=== PATIENT | male | born 1990 | race Two or more races ===

== ENCOUNTER 2022-04-10 08:53 | Outpatient (CLI) | payer OTHER | END 2022-04-10 08:54 | disposition home or self-care (01) | LOC: LAB 08:53 | PROVIDERS: ATTEND Obstetrics & Gynecology | DX: Z20.818 Contact with and (suspected) exposure to other bacterial communicable diseases (principal); Z20.828 Contact with and (suspected) exposure to other viral communicable diseases ==

== ENCOUNTER → 2022-04-14 | Outpatient (CLI) | payer OTHER | END | disposition home or self-care (01) | LOC: LAB 11:15 | PROVIDERS: ATTEND Pediatrics Neonatal-Perinatal Medicine | DX: Z11.52 Encounter for screening for COVID-19 (principal) ==

== ENCOUNTER 2025-03-11 17:49 | Emergency (ER) | payer OTHER ==
[~2025-03-11] VITALS: Ht 175.3 cm; Wt 107.0 kg
[2025-03-11] MEDS ORDERED: METFORMIN HCL500 M3 PO (17:57)
[2025-03-11] MEDS ORDERED: LANTUS SOL100 UNIT/1 SQ (17:57)
[2025-03-11] MEDS ORDERED: HUMALOG100 UNIT/2 (17:58)
[2025-03-11] MEDS ORDERED: INSULIN REGULAR, HUMAN 1,000 UNIT/10 ML UNITS IV ONE (18:15)
[2025-03-11 18:48] LABS: BASO % 0.5 % (0.1-1.2); EOS # 0.19 (0.04-0.54); EOS % 1.9 % (0.7-7.0); LYMPH # 2.12 (1.18-3.74); LYMPH % 21.3 % (19.3-53.1); MEAN PLATELET VOLUME 10.70 fl (9.4-12.4); MONO # 0.81 (0.24-0.82); MONO % 8.1 % (4.7-12.5); NEUT # 6.77 (1.56-6.13); NEUT % 67.9 % (34.0-71.1); RED CELL DISTRIBUTION WIDTH 11.9 % (11.6-14.4)
[2025-03-11 19:10] LABS: BUN CREA RATIO 13.0 (7.0-25.0); CREATININE SERUM 1.1 mg/dL (0.70-1.30); GFR 77.57; OSMOLALITY SERUM 289.0 MOSM/KG (275-295)
[2025-03-11 19:11] LABS: GLUCOSE FASTING 304.0 mg/dL (65-100)
== END 2025-03-11 20:57 | disposition home or self-care (01) ==
LOC: ER 17:49
PROVIDERS: General Practice
DX: E11.65 Type 2 diabetes mellitus with hyperglycemia (principal); Z79.4 Long term (current) use of insulin; Z79.84 Long term (current) use of oral hypoglycemic drugs

== ENCOUNTER → 2025-03-11 | Emergency (ER) | payer OTHER ==
[~2025-03-11] MED LIST: HUMALOG100 UNIT/2; LANTUS SOL100 UNIT/1 SQ; METFORMIN HCL500 M3 PO
== END | disposition left against medical advice (07) ==
LOC: ER 15:01
DX: Z53.21 Procedure and treatment not carried out due to patient leaving prior to being seen by health care provider (principal)